=== PATIENT | male | born 1970 | race Caucasian/White ===

== ENCOUNTER 2018-03-29 15:05 | Inpatient (IN) | payer OTHER ==
[~2018-03-29] VITALS: Ht 175.3 cm; Wt 95.3 kg
[2018-03-29 15:18] VITALS: BP 144/102
--- NOTE | 2018-03-29 15:28 | NUR ---
47m bib self with c/o 9/10 constant ruq abdomen pain x today after eating potato salad with nausea. Patient reports of similiar episode of pain two weeks ago. Patient denies any v/d fevers or urinary complaints. Pt is aox4 with steady gait. GCS=15. RR are even and unlabored. VSS. Awaiting er md simmons. Patient changed in to gown and provided with warm blanket. Will continue to monitor.
--- NOTE | 2018-03-29 16:05 | NUR ---
PT C/O RUQ PAIN, REQUESTED ANALGESIC---MD NOTIFIED
[2018-03-29] MEDS ORDERED: MORPHINE SULFATE 4 MG/ML SYR IVP ONE (16:20)
[2018-03-29] MEDS ORDERED: NACL 0.9% 1,000 ML IV ONE (16:20)
[2018-03-29 16:38] LABS: BASOPHILS # (AUTO) 0.1 K/uL (0.00-0.22); BASOPHILS % (AUTO) 0.6 % (0.0-2.0); EOSINOPHILS # (AUTO) 0.2 K/uL (0-0.4); EOSINOPHILS % (AUTO) 1.9 % (0.0-4.0); HEMATOCRIT 48.2 % (36-52); HEMOGLOBIN 16.8 g/dL (12.0-18.0); LYMPHOCYTES # (AUTO) 1.2 K/uL (2.0-11.5); LYMPHOCYTES % (AUTO) 13.9 % (20.5-51.1); MEAN CORPUSCULAR HEMOGLOBIN 31 pg (27-31); MEAN CORPUSCULAR HGB CONC 35 g/dL (33-37); MEAN CORPUSCULAR VOLUME 89.9 fL (80-94); MONOCYTES # (AUTO) 0.4 K/uL (0.8-1.0); MONOCYTES % (AUTO) 4.5 % (1.7-9.3); NEUTROPHILS # (AUTO) 6.7 K/uL (1.8-7.7); NEUTROPHILS % (AUTO) 79.1 % (42.2-75.2); PLATELET COUNT (AUTO) 329 K/uL (140-450); RED BLOOD CELL COUNT(AUTO) 5.36 MIL/uL (4.20-6.10); RED CELL DISTRIBUTION WIDTH 13.8 % (11.6-13.7); WHITE BLOOD COUNT (AUTO) 8.4 K/uL (4.8-10.8)
--- NOTE | 2018-03-29 16:42 | NUR ---
WILL CONTINUE TO OBSERVE FOR PAIN CONTROL---AWAITS ADMISSION
[2018-03-29 16:52] LABS: ALBUMIN 4.1 g/dL (3.4-5.0); CARBON DIOXIDE 27.8 mmol/L (21-32); POTASSIUM 4.8 mmol/L (3.5-5.1); TOTAL BILIRUBIN 0.4 mg/dL (0.0-1.0)
[2018-03-29] MEDS ORDERED: ACETAMINOPHEN 325 MG TAB PO PRN (17:45)
[2018-03-29] MEDS ORDERED: MORPHINE SULFATE 4 MG/ML SYR IVP PRN (17:45)
[2018-03-29] MEDS ORDERED: ONDANSETRON 4 MG/2 ML VIAL IVP PRN (17:45)
[2018-03-29] MEDS ORDERED: HYDROcodone/APAP 5/325 MG 1 TAB TAB PO PRN (17:45)
--- NOTE | 2018-03-29 17:48 | NUR ---
JF,NURSING [employer]ENA[employer] SHIFT SUPERVISOR MADE AWARE OF BED SITUATION IN MED.SURG. HE WILL CALL ME FOR DISPOSITION
--- NOTE | 2018-03-29 17:56 | NUR ---
denies ruq pain at this time---semi-fowlers position, ou open---admits feeling relaxed continues to wait for available room in [facility] for admission
--- NOTE | 2018-03-29 18:57 | NUR ---
Pt transferred to Med/Surg via wheelchair to room 111-B, report given to Sosa Gross RN
[2018-03-29 21:00] VITALS: BP 138/91
--- NOTE | 2018-03-29 21:00 | NUR ---
RECEIVED REPORT FROM ELY RN DAY SHIFT NURSE. PT AO X4 HE AMBULATED FROM GURNEY TO BED INDEPENDENTLY. HIS SKIN IS INTACT AND HE HAS A 20G IV IN L AC.PT DENIES ANY MEDICAL HISTORY; HE IS BEING ADMITTED FOR GALLSTONES. BS NOTED IN ALL 4 QUADS AND PT SAID HE HAD A BM THIS MORNING. PT HAS NO COMPLAINT OF PAIN ONLY WANTS TO SHOWER AT THIS TIME. PT IS STABLE AND VITAL SIGNS FOLLOWS T 98.0 P 76 R 20 B/P 124/81. FAMILY AT BEDSIDE AT THIS TIME. PT ASSISTED TO SHOWER AT THIS TIME.
[2018-03-29] MEDS ORDERED: cefTRIAXone 1,000 MG VIAL ONE (21:25)
[2018-03-29] MEDS: NACL 0.9% 1,000 ML IV SCH (21:41)
[2018-03-29] MEDS: metroNIDAZOLE 500 MG/NS PREMIX 100 ML IV SCH (22:49)
--- NOTE | 2018-03-30 01:00 | NUR ---
PT IN BED IN LOW POSITION WITH CALL DIAZ IN REACH. IV RUNNING 100 MLS NACL IV SITE FLUSHED PATENT PT IS AWARE OF NPO STATUS POST MIDNIGHT AND CONSENT SIGNED FOR LAPAROSCOPIC CHOLECYSTECTOMY IN THE AM. PT HAS NO COMPLAINTS OF PAIN AT THIS TIME.
[2018-03-30] MEDS: NACL 0.9% 1,000 ML IV SCH ×2 (03:52→13:43)
[2018-03-30] MEDS: metroNIDAZOLE 500 MG/NS PREMIX 100 ML IV SCH ×2 (05:28→12:09)
--- NOTE | 2018-03-30 06:37 | NUR ---
PT SITTING IN BED IV FLAGLY RUNNING AND IV INTACT. PT INSTRUCTED TO REMOVE ALL CLOTHES AND LEAVE ON GOWN FOR THE OPERATION. PT VERBALIZED UNDERSTANDING BUT WAS RELUCTANT TO REMOVE SOCKS. PRE-OP CHECK LIST DONE.
[2018-03-30 06:52] LABS: BASOPHILS # (AUTO) 0.1 K/uL (0.00-0.22); EOSINOPHILS # (AUTO) 0.3 K/uL (0-0.4); EOSINOPHILS % (AUTO) 3.6 % (0.0-4.0); HEMATOCRIT 46.4 % (36-52); HEMOGLOBIN 16.1 g/dL (12.0-18.0); LYMPHOCYTES # (AUTO) 2.5 K/uL (2.0-11.5); MEAN CORPUSCULAR HEMOGLOBIN 31 pg (27-31); MEAN CORPUSCULAR HGB CONC 35 g/dL (33-37); MEAN CORPUSCULAR VOLUME 90.2 fL (80-94); MONOCYTES # (AUTO) 0.4 K/uL (0.8-1.0); MONOCYTES % (AUTO) 5.3 % (1.7-9.3); NEUTROPHILS # (AUTO) 4.6 K/uL (1.8-7.7); NEUTROPHILS % (AUTO) 58.1 % (42.2-75.2); PLATELET COUNT (AUTO) 309 K/uL (140-450); RED BLOOD CELL COUNT(AUTO) 5.14 MIL/uL (4.20-6.10); RED CELL DISTRIBUTION WIDTH 13.7 % (11.6-13.7); WHITE BLOOD COUNT (AUTO) 7.9 K/uL (4.8-10.8)
[2018-03-30 06:56] VITALS: BP 125/72
[2018-03-30 07:14] LABS: ALBUMIN 3.7 g/dL (3.4-5.0); ANION GAP 8.5 (8-16); CARBON DIOXIDE 30.9 mmol/L (21-32); POTASSIUM 4.4 mmol/L (3.5-5.1); TOTAL BILIRUBIN 0.7 mg/dL (0.0-1.0)
--- NOTE | 2018-03-30 07:20 | NUR ---
RECEIVED REPORT FROM NIGHTSHIFT NURSE AT BEDSIDE. PATIENT PRESENTS SITTING ON SIDE OF THE BED. NO DISTRESS NOTED AT THIS TIME. PATIENT DOES NOT PRESENT WITH ANY PAIN. PATIENT ALERT AND ORIENTED X4. PATIENT SKIN INTACT. PATIENT IS AWARE OF SURGERY TODAY. UPDATED BOARD IN PATIENT'S ROOM. WILL CONTINUE TO MONITOR PATIENT.
[2018-03-30] MEDS ORDERED: ONDANSETRON 4 MG/2 ML VIAL ONE (07:30)
[2018-03-30] MEDS ORDERED: SUCCINYLCHOLINE CHLORIDE 200 MG/10 ML VIAL IVP ONE (07:30)
[2018-03-30] MEDS ORDERED: PROPOFOL 200 MG/20 ML VIAL IV ONE (07:30)
[2018-03-30] MEDS ORDERED: DEXAMETHASONE 4 MG/ML VIAL ONE (07:30)
[2018-03-30] MEDS ORDERED: SEVOFLURANE 250 ML BTL INH ONE (07:30)
[2018-03-30] MEDS ORDERED: PHENYLEPHRINE 10 MG/ML VIAL ONE (07:30)
[2018-03-30] MEDS ORDERED: ROCURONIUM 50 MG/5 ML VIAL IV ONE (07:30)
[2018-03-30] MEDS ORDERED: GLYCOPYRROLATE 0.2 MG/ML VIAL ONE (07:30)
--- NOTE | 2018-03-30 07:31 | NUR ---
PT LEFT FOR SURGICAL PROCDURE AT 0726. REPORT GIVEN TO OLIVER LOAIZA NURSE AT BEDSIDE AT 0715. PT IN STABLE CONDITION
[2018-03-30] MEDS ORDERED: BUPIVACAINE-MPF 0.25% 30 ML VIAL INJ ONE (07:38)
[2018-03-30] MEDS ORDERED: MIDAZOLAM 2 MG/2 ML VIAL ONE (07:39)
[2018-03-30] MEDS ORDERED: fentaNYL 0.05 MG/ML VIAL ONE (07:39)
[2018-03-30] MEDS ORDERED: MEPERIDINE 50 MG/ML SYR ONE (07:40)
[2018-03-30] MEDS ORDERED: MEPERIDINE 50 MG/ML SYR IVP PRN (08:10)
[2018-03-30] MEDS ORDERED: LACTATED RINGERS 1,000 ML IV SCH (08:10)
[2018-03-30] MEDS ORDERED: ONDANSETRON 4 MG/2 ML VIAL IVP PRN (08:10)
[2018-03-30] MEDS ORDERED: diphenhydrAMINE 50 MG/ML VIAL IVP PRN (08:10)
[2018-03-30] MEDS ORDERED: HYDROmorphone PFS 2 MG/ML SYR ONE (09:24)
[2018-03-30] MEDS: HYDROmorphone 1 MG/ML AMP IVP PRN ×4 (09:25→10:08)
--- NOTE | 2018-03-30 10:19 | NUR ---
PATIENT HAS BEEN SCREENED AND CATEGORIZED HIGH NUTRITION RISK. PATIENT WILL BE SEEN WITHIN 1-2 DAYS OF ADMISSION. 03/30/18 03/31/[address]
--- NOTE | 2018-03-30 10:30 | NUR ---
PATIENT BACK FROM SURGERY ACCOMPANIED BY 2 OR NURSES. PATIENT VITAL SIGNS ARE WITHIN NORMAL LIMITS. APPLIED O2 2L VIA NC TO PATIENT. PATIENT SATURATION AT 94% RIGHT NOW. RECEIVED REPORT FROM OR NURSES. WILL CONTINUE TO MONITOR PATIENT.
[2018-03-30 12:00] VITALS: BP 128/70
--- NOTE | 2018-03-30 12:29 | NUR ---
PATIENT GIVEN ICE CHIPS. PATIENT DOES NOT FEEL HUNGRY AT THIS TIME. WILL CONTINUE TO MONITOR PATIENT
--- NOTE | 2018-03-30 13:22 | NUR ---
PATIENT ABLE TO EAT SOUP WITHOUT ANY DISTRESS. PATIENT TOLERATED WELL.
--- NOTE | 2018-03-30 14:14 | NUR ---
FAXED INITIAL REVIEW TO [facility] [phone] PHONE KATERYNA [phone]
--- NOTE | 2018-03-30 15:00 | NUR ---
PATIENT ABLE TO AMBULATE TO RESTROOM AND URINATE. PATIENT TOLERATED WELL.
[2018-03-30 16:00] VITALS: BP 122/70
--- NOTE | 2018-03-30 17:55 | NUR ---
PATIENT SIGNED ALL DISCHARGE INSTRUCTIONS. PATIENT UNDERSTOOD AND VERBALIZED THE TEACHINGS IN THE DISCHARGE INSTRUCTION. DISCONTINUED PATIENT'S INTRAVENOUS LINE WITH CATHETER STILL INTACT. REMOVED PATIENT'S ID BANDS. PATIENT GATHERED ALL BELONGINGS. PATIENT LEFT THE UNIT WITH FAMILY WITH ALL BELONGINGS. PATIENT LEFT IN STABLE CONDITION.
--- NOTE | 2018-04-04 13:47 | NUR ---
PER REQUEST OF KATERYNA FROM [facility], DISCHARGE SUMMARY FAXED TO HER AT [phone] PHONE [phone]
== END 2018-03-30 17:55 | disposition home or self-care (01) | DRG 263 ==
LOC: MED 15:05 → UNDOADMIN 17:48 → MMU 17:48 → MIC 17:49 → MTU 18:56
PROVIDERS: ADMIT Hospitalist; ATTEND Hospitalist
PROC: 0FT44ZZ Resection of Gallbladder, Percutaneous Endoscopic Approach (ICD-10-PCS; principal; 2018-03-30 07:30)
DX: K80.10 Calculus of gallbladder with chronic cholecystitis without obstruction (principal)
CPT/HCPCS: 36415; 71045; 76705; 80053; 82374; 83690; 85025; 86886; 86900; 86901; 87081; 88304; 93005; 96360; 99285; J0330; J0696; J1100; J1170; J2175; J2250; J2270; J2370; J2405; J2704; J3010; J3490; J7030; J7060; Q0092